=== PATIENT | female | born 1990 | race Caucasian/White ===

== ENCOUNTER 2018-06-06 22:43 | Emergency (ER) | payer SELFPAY ==
[~2018-06-06] VITALS: Ht 170.2 cm; Wt 65.8 kg
[~2018-06-06 22:43] MED LIST: PROAIR HFA8.5 GM INH
[2018-06-06 23:00] VITALS: BP 139/97
[2018-06-06] MEDS ORDERED: IPRATRPIUM/ALBUTEROL 0.5/2.5MG 3 ML NEBU. NEB ONE (23:00)
[2018-06-06] MEDS ORDERED: predniSONE 10 MG TABLET PO ONE (23:15)
[2018-06-07] MEDS ORDERED: PROAIR HFA8.5 GM INH (00:20)
[2018-06-07] MEDS ORDERED: PRED50TA PO (00:20)
--- NOTE | 2018-06-07 00:21 | PHYS DOC ---
Past Medical History Past Medical History: Asthma Past Surgical History: Other Additional Past Surgical Histo: ACL Alcohol Use: Occasionally Drug Use: None Adult General Chief Complaint Chief Complaint: SHORTNESS OF BREATH HPI HPI Patient is a 27 year old female who presents with an asthma exacerbation. The patient states that she has had this going on intermittently for over 2 weeks. She has tried using her inhaler at home with very little success. She states that it greatly increased yesterday and today. She is wheezing and states that she is having left rib pain when she tries to take a deep breath or if she coughs. Review of Systems Review of Systems Constitutional: Denies fever or chills [] Eyes: Denies change in visual acuity, redness, or eye pain [] HENT: Denies nasal congestion or sore throat [] Respiratory: See history of present illness Cardiovascular: No additional information not addressed in HPI [] Neurologic: Denies headache, focal weakness or sensory changes [] Endocrine: Denies polyuria or polydipsia [] All other systems were reviewed and found to be within normal limits, except as documented in this note. Current Medications Current Medications Current Medications Medications (Trade) Dose Ordered Sig/Sheyla Start Time Stop Time Status Last Admin Dose Admin Albuterol/ Ipratropium (Duoneb) 3 ml 1X ONCE 06/06/18 23:00 06/06/18 23:14 DC 06/06/18 23:06 3 ML Prednisone (Prednisone) 50 mg 1X ONCE 06/06/18 23:15 06/06/18 23:16 DC Allergies Allergies Allergies Coded Allergies Type Severity Reaction Last Updated Verified No Known Drug Allergies 06/11/15 No Physical Exam Physical Exam Constitutional: Well developed, well nourished, no acute distress, non-toxic appearance. [] HENT: Normocephalic, atraumatic, bilateral external ears normal, oropharynx moist, no oral exudates, nose normal. [] Eyes: PERRLA, EOMI, conjunctiva normal, no discharge. [] Neck: Normal range of motion, no tenderness, supple, no stridor. [] Cardiovascular:Heart rate regular rhythm, no murmur [] Lungs & Thorax: Bilateral breath sounds show wheezing throughout Abdomen: Bowel sounds normal, soft, no tenderness, no masses, no pulsatile masses. [] Skin: Warm, dry, no erythema, no rash. [] Neurologic: Alert and oriented X 3, normal motor function, normal sensory function, no focal deficits noted. [] Psychologic: Affect normal, judgement normal, mood normal. [] Current Patient Data Vital Signs Vital Signs Date Time Temp Pulse Resp B/P (MAP) Pulse Ox O2 Delivery O2 Flow Rate FiO2 06/06/18 23:07 Room Air 06/06/18 23:00 98.5 82 18 139/97 (111) 96 98.5 EKG EKG [] Radiology/Procedures Radiology/Procedures [] Course & Med Decision Making Course & Med Decision Making Pertinent Labs and Imaging studies reviewed. (See chart for details) []The patient had a DuoNeb treatment and administration of prednisone with resolution of her wheezing. Chest x-ray was negative for pneumonia or rib fracture. Dragon Disclaimer Dragon Disclaimer This electronic medical record was generated, in whole or in part, using a voice recognition dictation system. Departure Departure Impression: Primary Impression: Asthma exacerbation Disposition: HOME, SELF-CARE Condition: STABLE Referrals: NO PCP (PCP) Patient Instructions: Asthma Prevention-Brief, Asthma, Adult Additional Instructions: Take the medication as directed. Follow-up with your primary care provider in 3 days for recheck or return to the emergency department if worsening. Scripts Prednisone (PREDNISONE) 50 Mg Tablet 1 TAB PO DAILY, #5 TAB Prov: MARCELA RIOS APRN 06/07/18 Albuterol Sulfate (PROAIR HFA INHALER) 8.5 Gm Hfa.aer.ad 1 PUFF INH PRN Q6HRS PRN for SHORTNESS OF BREATH, #1 INHALER 0 Refills Prov: MARCELA RIOS APRN 06/07/18 MARCELA RIOS APRN Jun 07, 2018 00:21
--- NOTE | 2018-06-07 03:46 | RAD ---
CHEST PA LATERAL History: chest pain , left lower rib pain, shortness of air. Comparison: None. Findings: The cardiomediastinal silhouette is normal. Pulmonary vasculature is normal. The lungs are clear. No pleural effusion or pneumothorax is seen. There is no acute bone abnormality. IMPRESSION: No acute cardiopulmonary process. Electronically signed by: Osmin Schilling MD (06/07/2018 3:43 AM) [id number]
== END 2018-06-07 00:45 | disposition home or self-care (01) ==
LOC: ER 22:43
DX: J45.901 Unspecified asthma with (acute) exacerbation (principal)
CPT/HCPCS: 71046; 94640; 99284; J7620; 99283